=== PATIENT | male | born 1945 | race Caucasian/White ===

== ENCOUNTER 2016-12-16 17:51 | Observation (INO) | payer MEDICARE, BC ==
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
[2016-12-16] MEDS ORDERED: ALBUTEROL SULFATE/IPRATROPIUM 3 ML NEBU IH ONE ×2 (18:14→18:17)
[2016-12-16] MEDS ORDERED: METHYLPREDNISOLONE SOD SUCC/PF 40 MG/ML VIAL IV ONE (18:17)
[2016-12-16] MEDS ORDERED: AZITHROMYCIN 250 MG TABLET PO ONE (18:19)
[2016-12-16] MEDS: NORMAL SALINE 1,000 ML IV PRN (18:20)
--- NOTE | 2016-12-16 18:24 | ERNOTE ---
Dizziness ER Record Date of Service: 12/16/16 Presenting Symptoms: near-fainting Time Seen by Provider: 12/16/16 18:06 Source: patient, family Exam Limitations: no limitations Immunizations: IMMUNIZATION HX Immunizations Up to Date Yes History of Influenza Vaccine No Hx Pneumococcal Vaccination No Allergies/Adverse Reactions: Allergies Allergy/AdvReac Type Severity Reaction Status Date / Time No Known Allergies Allergy Verified 12/16/16 18:01 Home Medications: HOME MEDICATIONS NK [No Home Medication] 11/06/12 [Last Taken Unknown] - History of Present Illness Narrative: Coughing, wheezing, SOB for 3 weeks. Getting worse. Chills and sweats, but didn't take his temperature. Still smokes. Last night, took alkaseltzer for sleep, a double dose. Just before coming to the [facility] ER by ambulance today, he stood up and almost passed out. Timing and Duration: gone now Severity: max: mild Severity: currently: gone Associated Symptoms: Present: other Sense of movement: Present: falling Fainted/near fainted while:: Present: standing Decreased ability to stand/walk:: Present: weak Usually:: Present: walks w/o assistance Modifying Factors - (Improves): Reports: nothing Modifying Factors - (Worsens): Reports: standing position Prior Treament: Denies: recently seen, treated by physician, currently on antibiotics Review of Systems - Review of Systems Constitutional: Present: chills, diaphoresis, weakness, fatigue, malaise, decreased activity level EYE: Present: no symptoms reported ENT: Present: nose congestion, nasal drainage, sore throat Respiratory: Present: shortness of breath, cough, wheezing Cardiology: Present: no symptoms reported Gastrointestinal/Abdominal: Present: diarrhea - diarrhea for 2 days Genitourinary: Present: no symptoms reported Musculoskeletal: Present: no symptoms reported Skin: Present: no symptoms reported Neurological: Present: no symptoms reported Endocrine: Present: no symptoms reported Hematologic/Lymphatic: Present: no symptoms reported Psych: Present: no symptoms reported All Other Systems: All systems neg except as marked - Patient's Past Medical History Patient History - Medical: Kidney stone Patient History - Cardiac/Respiratory: COPD Patient History - Cancer: No Hx of Cancer Patient History - Surgical Procedures: No surgical history, Appendectomy Patient History - Other: None - Social History Living Situations: spouse Abuse History: No History of abuse Psych History: No pertinent hx Smoking Status: Current every day smoker Alcohol Use: none Drug Use: none - Immunizations Immunizations Up to Date: Yes Hx Pneumococcal Vaccination: No History of Influenza Vaccine: No Physical Exam - Physical Exam General Appearance: Present: wd/wn, mild distress, lethargic Eye Exam: Normal inspection: bilateral, PERRL: bilateral, EOMI: bilateral Ears, Nose, Throat: Present: normal ENT inspection, nasal congestion, pharyngeal erythema, dry mucous membranes Neck: Present: normal inspection Respiratory: Present: expiration (prolonged), rhonchi, wheezing Cardiovascular/Chest: Present: regular rate, rhythm, no murmur, tachycardia Gastrointestinal/Abdominal: Present: normal bowel sounds, nontender, nondistended, soft, no organomegaly Back Exam: Present: normal inspection Extremity Exam: Present: normal inspection, non-tender, normal range of motion, no edema Neurological Exam: Present: oriented Skin Exam: Present: normal color, warm/dry ED Progress - Results and Orders Patient's Lab Results:: I have reviewed the patient's lab results. - Vital Signs Patient's Vital Signs:: I have reviewed the patient's vital signs. Vital Signs: Vital Signs 12/16/16 12/16/16 12/16/16 17:54 18:00 18:17 Temperature 38.9 C H Pulse Rate 90 90 90 Respiratory 24 H 24 H Rate Blood Pressure 145/77 O2 Sat by Pulse 92 94 Oximetry - EKG EKG: supraventricular tachycardia, nonspecific ST T wave changes EKG read: Interp. by me - X-Ray X-Ray #1 X-Ray: chest Interpretation: Interp. by me - bilateral pneumonitis - Progress/Reassessment Chief Complaint: Dizziness Progress Note-Subjective: 12/16/16 19:58 Pneumonia severity score is 72, Class III, but after Duoneb, the patients wheezing improved minimally. Therefore the pneumonia is complicated by an acute exacerbation of COPD. I have therefor advised the patient to be admitted , at least overnight if not longer, and have discussed this with our Nurse Practitioner hospitalist, who agrees to accept him as an observation med surg admission. Departure Clinical Impression: Acute exacerbation of chronic bronchitis Pneumonia Qualifiers: Pneumonia type: due to unspecified organism Laterality: bilateral Lung location : lower lobe of lung Qualified Code(s): J18.9 - Pneumonia, unspecified organism - Departure Disposition: [facility] Condition: Fair
[2016-12-16] MEDS ORDERED: METHYLPREDNISOLONE SOD SUCC/PF 125 MG/2 ML VIAL ONE (18:29)
[2016-12-16] MEDS ORDERED: AZITHROMYCIN 250 MG TABLET ONE (18:29)
[2016-12-16 18:43] LABS: Hematocrit 49.4 % (42.0-52.0); Mean Cell Volume 93.6 fl (78-100); Mean Corpuscular Hemoglobin 32.2 pg (27-31); Mean Corpuscular Hgb Conc 34.4 g/dl (32-36); Mean Platelet Volume 9.6 fl (6.0-9.5); Neutrophil # 11.3 K/mm3 (1.3-6.0); Platelet Count 153 K/mm3 (150-450); Red Blood Count 5.28 M/mm3 (4.7-6.0); Red Cell Distribution Width 13.9 % (11.5-14.0); White Blood Count 13.8 K/mm3 (4.0-10.5)
[2016-12-16 19:03] LABS: Albumin * 3.8 gm/dl (3.4-5.0); BUN/Creatinine Ratio 13.2 (9.0-21.6); Bilirubin, Total 0.5 mg/dL (0.0-1.1); Ca. Corrected For Albumin 8.3 mg/dL (8.4-10.2); Calcium * 8.5 mg/dL (7.9-10.9); Carbon Dioxide 29.6 mmol/L (24-32.6); Potassium 3.6 mmol/L (3.4-4.6); T4 Free * 1.14 ng/dL (0.76-1.46); TSH * 0.533 uIU/mL (0.358-3.74); Total Protein 7.9 gm/dL (6.2-8.2); Troponin I 0.017 ng/ml (0.00-0.10)
--- OUTSIDE RECORDS SUMMARY | 2016-12-16 20:05 | XMS REPORT | Continuity of Care Document ---
:1945 Author Organization [facility] ([facility]) [place] [address] Phone [phone] Care Team Providers Name Role Phone Tung Holm Primary Care Provider [phone] Source Comments This disclosure is being made pursuant to the Care Everywhere program, applicable federal and state laws, and may not contain all informaitonavailable regarding this patient.[facility] ([facility]) Active Allergies and Adverse Reactions No Known [...]
[2016-12-16 20:07] LABS: Urine Appearance Clear; Urine Bilirubin Negative (NEGATIVE); Urine Color Yellow
[2016-12-16 20:08] LABS: Urine Bacteria None Seen; Urine Blood 250 /ul (NEGATIVE); Urine Ketone Negative (NEGATIVE); Urine Nitrite Negative (NEGATIVE); Urine Protein 30 mg/dL (NEGATIVE); Urine Specific Gravity 1.025 SP.GR. (1.005-1.030); Urine Urobilinogen Normal (NORMAL); Urine WBC 0-5 /hpf (0-5); Urine pH 5.5 pH (5.0-7.0)
[2016-12-16] MEDS ORDERED: ACETAMINOPHEN 325 MG TABLET PO PRN (20:21)
[2016-12-16] MEDS ORDERED: ALBUTEROL SULFATE 2.5 MG/3 ML VIAL.NEB IH PRN (20:24)
[2016-12-16] MEDS ORDERED: NICOTINE 21 MG PATC TD SCH (22:00)
--- NOTE | 2016-12-16 22:18 | HP ---
<Tyson Henley - Last Filed: 12/16/16 22:19> Chief Complaint - Chief Complaint Date of Service: 12/16/16 Time of Service: 22:00 Chief Complaint: Cough, wheezing, dizziness History of Present Illness: 71 years old male adm to the hospital from ER with reports of shortness of breath, wheezing, dizziness and non productive cough x 3 weeks. PMH significant for COPD and smoker. pt stated he has not seen a PCP in over 5 years and he continue to smoke and have not been using any inhalers or nebulizers at home. Despite his s/s at home he continue to smoke and stated he thought he would have gotten over s/s with the use of alkaseltzer. He denies headaches, chest pain, palpitation, fever or chills. He also had few episode of diarrhea that has since been resolved. Today he stood and felt dizzy like he was about to faint which prompt him to come to the ER. In ER he was given duoneb, IV steriod , supplemented oxygen with not much relief. On adm Temp 38.9 but pt didn't take his temp while at home, on adm WBC 38 and EKG SVT. Plan of care discussed with pt he verbalized understanding and agrees. - Patient's Past Medical History Patient History - Medical: Cataracts, Kidney stone Patient History - Cardiac/Respiratory: Bronchitis, COPD, Pneumonia, Other - smoker Patient History - Cancer: No Hx of Cancer Patient History - Surgical Procedures: No surgical history, Appendectomy, Cataracts, Urology - stone extraction Patient History - Other: None - Family History Father Family History - Medical: , Diabetes Type 2 Family History - Cancer: No pertinent family hx Mother Family History - Medical: Family History - Cardiac/Respiratory: COPD Family History - Cancer: No pertinent family hx - Social History Living Situations: spouse Abuse History: No History of abuse Psych History: No pertinent hx Smoking Status: Heavy tobacco smoker Have you smoked in the past 12 months: Yes Do you dip or chew tobacco: No Patient requests Smoking Cessation Consult: No Initiate information on Smoking Cessation: Yes Alcohol Use: none Drug Use: none - Immunizations Immunizations Up to Date: Yes Hx Pneumococcal Vaccination: No History of Influenza Vaccine: No Review Of Systems (GEN) - Review of Systems Generalized/Overall Review: Present: No Symptoms Reported EENTM: Present: No Symptoms Reported Respiratory: Present: Cough, Shortness of Breath, Wheezing Cardiac: Present: No Symptoms Reported Abdominal: Present: No Symptoms Reported Genitourinary: Present: No Symptoms Reported Musculoskeletal: Present: No Symptoms Reported Neurological: Present: No Symptoms Reported Skin: Present: No Symptoms Reported Endocrine: Present: No Symptoms Reported Immunizations: IMMUNIZATION HX Immunizations Up to Date Yes History of Influenza Vaccine No Hx Pneumococcal Vaccination No Allergies/Adverse Reactions: Allergies Allergy/AdvReac Type Severity Reaction Status Date / Time No Known Allergies Allergy Verified 12/16/16 18:01 Home Medications: HOME MEDICATIONS Albuterol Sulfate/Ipratropium [Duoneb 2.5-0.5MG/3ML Soln] 3 ml IH QID #120 vial 12/17/16 [Last Taken Unknown] Azithromycin [Zithromax] 250 mg PO DAILY #3 tablet 12/17/16 [Last Taken Unknown] Cefuroxime Axetil [Ceftin] 500 mg PO BID #20 tab 12/17/16 [Last Taken Unknown] Nebulizer [Compact Ultrasonic Nebulizer] 1 each MC QID #1 each 12/17/16 [Last Taken Unknown] predniSONE [Prednisone] 3 tab PO BID #60 tab 12/17/16 [Last Taken Unknown] Exam - Exam Vital Signs: Vital Signs - Last Taken Temp 37.5 C 12/16/16 20:22 Pulse 91 12/16/16 20:22 Resp 22 H 12/16/16 20:22 BP 151/58 12/16/16 20:22 Pulse Ox 95 12/16/16 20:22 Constitutional: Present: Alert, Oriented x3, Cooperative, No distress, Elderly, Looks Older than stated age ENT Exam: Present: moist mucous membranes Eye Exam: bilateral eye: PERRL Neck: Present: full range of motion Back Exam: Present: no CVA tenderness Respiratory: Present: chest non-tender, no accessory muscle use, decreased breath sounds, wheezing Cardiovascular/Chest: Present: normal peripheral pulses, regular rate, rhythm, no chest tenderness Peripheral Pulses: dorsalis-pedis (R): 2+, dorsalis-pedis (L): 2+ Abdomen: Present: Normal bowel sounds, soft, nontender, nondistended, no rebound tenderness /Rectal: Present: Exam deferred Extremity: Present: normal range of motion Skin Exam: Present: normal color, warm/dry, no cyanosis Appearance: Present: appropriate appearance Eye contact: Present: cooperative Thoughts: Present: normal thought pattern Diagnostic Studies: Microbiology 12/16/16 20:45 Sputum Culture - Preliminary Expectorate Sputum Laboratory Results WBC 13.8 K/mm3 (4.0-10.5) H 12/16/16 18:20 RBC 5.28 M/mm3 (4.7-6.0) 12/16/16 18:20 Hgb 17.0 gm/dL (13.5-18.0) 12/16/16 18:20 Hct 49.4 % (42.0-52.0) 12/16/16 18:20 MCV 93.6 fl (78-100) 12/16/16 18:20 MCH 32.2 pg (27-31) H 12/16/16 18:20 MCHC 34.4 g/dl (32-36) 12/16/16 18:20 RDW 13.9 % (11.5-14.0) 12/16/16 18:20 Plt Count 153 K/mm3 (150-450) 12/16/16 18:20 MPV 9.6 fl (6.0-9.5) H 12/16/16 18:20 Immature Gran % (Auto) 0.50 % (0.001-0.429) H 12/16/16 18:20 Immature Gran # (Auto) 0.07 K/mm3 (0.000-0.0310) H 12/16/16 18:20 Neutrophils % 82.0 % (42-75.0) H 12/16/16 18:20 Lymphocytes % 7.8 % (20-51) L 12/16/16 18:20 Monocytes % 9.3 % (0.0-9) H 12/16/16 18:20 Eosinophils % 0.0 % (0.0-3.0) 12/16/16 18:20 Basophils % 0.4 % (0.0-1.0) 12/16/16 18:20 Nucleated RBC % 0.0 k/mm3 (0-1) 12/16/16 18:20 Neutrophils # 11.3 K/mm3 (1.3-6.0) H 12/16/16 18:20 Lymphocytes # 1.1 k/mm3 (1.5-3.5) L 12/16/16 18:20 Monocytes # 1.3 k/mm3 (0.0-1.0) H 12/16/16 18:20 Eosinophils # 0.0 k/mm3 (0.0-0.7) 12/16/16 18:20 Absolute Basophils 0.1 k/mm3 (0.0-0.1) 12/16/16 18:20 Sodium 137 mmol/L (132-142) 12/16/16 18:20 Plasma Sodium 137 mmol/L (130-142) 12/16/16 18:20 Potassium 3.6 mmol/L (3.4-4.6) 12/16/16 18:20 Chloride 98 mmol/L (97-106) 12/16/16 18:20 Carbon Dioxide 29.6 mmol/L (24-32.6) 12/16/16 18:20 Anion Gap 13.0 mmol/L (6.8-13.8) 12/16/16 18:20 BUN 15 mg/dL (6-23) 12/16/16 18:20 Creatinine 1.14 mg/dL (0.4-1.4) 12/16/16 18:20 Est GFR (Non-Af Amer) 67 mL/min (60-130) 12/16/16 18:20 BUN/Creatinine Ratio 13.2 (9.0-21.6) 12/16/16 18:20 Random Glucose 123 mg/dL (70-110) H 12/16/16 18:20 Lactic Acid, Venous 1.4 mmol/L (0.4-2.0) 12/16/16 20:55 Calcium 8.5 mg/dL (7.9-10.9) 12/16/16 18:20 Calcium Adj for Albumin 8.3 mg/dL (8.4-10.2) L 12/16/16 18:20 Total Bilirubin 0.5 mg/dL (0.0-1.1) 12/16/16 18:20 AST 21 U/L (0-48) 12/16/16 18:20 ALT 21 U/L (19-67) 12/16/16 18:20 Alkaline Phosphatase 53 U/L (50-170) 12/16/16 18:20 Troponin I 0.017 ng/ml (0.00-0.10) 12/16/16 18:20 B-Natriuretic Peptide 172 pg/mL (5-350) 12/16/16 18:20 Total Protein 7.9 gm/dL (6.2-8.2) 12/16/16 18:20 Albumin 3.8 gm/dl (3.4-5.0) 12/16/16 18:20 Procalcitonin 0.06 ng/mL (0.05-0.50) 12/16/16 18:20 TSH 0.533 uIU/mL (0.358-3.74) 12/16/16 18:20 Free T4 1.14 ng/dL (0.76-1.46) 12/16/16 18:20 Urine Color Yellow 12/16/16 19:52 Urine Appearance Clear 12/16/16 19:52 Urine pH 5.5 pH (5.0-7.0) 12/16/16 19:52 Ur Specific Gilson 1.025 SP.GR. (1.005-1.030) 12/16/16 19:52 Urine Protein 30 mg/dL (NEGATIVE) H 12/16/16 19:52 Urine Glucose (UA) Negative mg/dL (NEGATIVE) 12/16/16 19:52 Urine Ketones Negative mg/dL (NEGATIVE) 12/16/16 19:52 Urine Blood 250 /ul (NEGATIVE) H 12/16/16 19:52 Urine Nitrate Negative (NEGATIVE) 12/16/16 19:52 Urine Bilirubin Negative mg/dl (NEGATIVE) 12/16/16 19:52 Prot Sulfosalicylic Acd 2+ mg/dL (0) H 12/16/16 19:52 Urine Urobilinogen Normal EU/dl (NORMAL) 12/16/16 19:52 Ur Leukocyte Esterase Negative /ul (NEGATIVE) 12/16/16 19:52 Urine RBC 5-10 /hpf (0-5) H 12/16/16 19:52 Urine WBC 0-5 /hpf (0-5) 12/16/16 19:52 Ur Epithelial Cells 0-5 /hpf (0-5) 12/16/16 19:52 Urine Bacteria None seen (NONE) 12/16/16 19:52 Urine Culture Comments No culture indicated 12/16/16 19:52 Assessment/Plan - Narrative Narrative: Acute on chronic COPD exacerbation- Heavy smoker and not non-compliance with treatment regimen. Continue with duoneb, inhale and IV steriod treatment Supplemented oxygen spo2 >90% Encourage use of I/S/ Cornet Nicotine patch Blood culture and sputum culture pending Substance abuse smoking cessation education Nicotine patch SVT - seen on EKG vs nebulizer treatment Continue while on Tele Code status: DNR VTE ppx: Lovenox GI PPX: protonix Anticipate discharge home 0-1 day and seek out a PCP Time 35 minutes and previous records reviewed. - Assessment/Plan (1) COPD (chronic obstructive pulmonary disease) Problem: Acute QualifierTitle: COPD type: COPD with acute exacerbation Qualified Code(s) : J44.1 - Chronic obstructive pulmonary disease with (acute) exacerbation (2) Smoker Problem: Chronic <Tung León - Last Filed: 12/17/16 17:40> Immunizations: IMMUNIZATION HX Immunizations Up to Date Yes History of Influenza Vaccine No Hx Pneumococcal Vaccination No Exam - Exam Vital Signs: Vital Signs - Last Taken Temp 35.6 C L 12/17/16 09:00 Pulse 70 12/17/16 15:07 Resp 20 12/17/16 15:07 BP 111/51 12/17/16 09:00 Pulse Ox 91 12/17/16 14:57 Diagnostic Studies: Abnormal Lab Results 12/17/16 12/17/16 Range/Units 05:47 05:47 WBC 12.2 H (4.0-10.5) K/mm3 MCH 31.5 H (27-31) pg RDW 14.1 H (11.5-14.0) % Plt Count 148 L (150-450) K/mm3 MPV 10.0 H (6.0-9.5) fl Neutrophils % (Manual) 77 H (42-75) % Band Neuts % (Manual) 11 H (0-2.0) % Lymphocytes % (Manual) 8 L (20-51) % Neutrophils # (Manual) 9.4 H (1.3-6.0) K/mm3 Lymphocytes # (Manual) 1.0 L (1.5-3.5) k/mm3 Platelet Estimate Decreased L (NORMAL) Random Glucose 157 H (70-110) mg/dL Microbiology 12/16/16 20:45 Sputum Culture - Preliminary Expectorate Sputum Laboratory Results WBC 12.2 K/mm3 (4.0-10.5) H 12/17/16 05:47 RBC 4.85 M/mm3 (4.7-6.0) 12/17/16 05:47 Hgb 15.3 gm/dL (13.5-18.0) 12/17/16 05:47 Hct 45.7 % (42.0-52.0) 12/17/16 05:47 MCV 94.2 fl (78-100) 12/17/16 05:47 MCH 31.5 pg (27-31) H 12/17/16 05:47 MCHC 33.5 g/dl (32-36) 12/17/16 05:47 RDW 14.1 % (11.5-14.0) H 12/17/16 05:47 Plt Count 148 K/mm3 (150-450) L 12/17/16 05:47 MPV 10.0 fl (6.0-9.5) H 12/17/16 05:47 Immature Gran % (Auto) 0.50 % (0.001-0.429) H 12/16/16 18:20 Immature Gran # (Auto) 0.07 K/mm3 (0.000-0.0310) H 12/16/16 18:20 Neutrophils % 82.0 % (42-75.0) H 12/16/16 18:20 Neutrophils % (Manual) 77 % (42-75) H 12/17/16 05:47 Band Neuts % (Manual) 11 % (0-2.0) H 12/17/16 05:47 Lymphocytes % 7.8 % (20-51) L 12/16/16 18:20 Lymphocytes % (Manual) 8 % (20-51) L 12/17/16 05:47 Monocytes % 9.3 % (0.0-9) H 12/16/16 18:20 Monocytes % (Manual) 3 % (0-9) 12/17/16 05:47 Eosinophils % 0.0 % (0.0-3.0) 12/16/16 18:20 Eosinophils % (Manual) 1 % (0-3) 12/17/16 05:47 Basophils % 0.4 % (0.0-1.0) 12/16/16 18:20 Nucleated RBC % 0.0 k/mm3 (0-1) 12/16/16 18:20 Neutrophils # 11.3 K/mm3 (1.3-6.0) H 12/16/16 18:20 Neutrophils # (Manual) 9.4 K/mm3 (1.3-6.0) H 12/17/16 05:47 Lymphocytes # 1.1 k/mm3 (1.5-3.5) L 12/16/16 18:20 Lymphocytes # (Manual) 1.0 k/mm3 (1.5-3.5) L 12/17/16 05:47 Monocytes # 1.3 k/mm3 (0.0-1.0) H 12/16/16 18:20 Monocytes # (Manual) 0.4 k/mm3 (0.0-1.0) 12/17/16 05:47 Eosinophils # 0.0 k/mm3 (0.0-0.7) 12/16/16 18:20 Eosinophils # (Manual) 0.1 k/mm3 (0.0-0.7) 12/17/16 05:47 Absolute Basophils 0.1 k/mm3 (0.0-0.1) 12/16/16 18:20 Platelet Estimate Decreased (NORMAL) L 12/17/16 05:47 Giant Platelets Trace 12/17/16 05:47 RBC Morphology Normal (NORMAL) 12/17/16 05:47 Sodium 140 mmol/L (132-142) 12/17/16 05:47 Plasma Sodium 141 mmol/L (130-142) 12/17/16 05:47 Potassium 3.9 mmol/L (3.4-4.6) 12/17/16 05:47 Chloride 104 mmol/L (97-106) 12/17/16 05:47 Carbon Dioxide 26.6 mmol/L (24-32.6) 12/17/16 05:47 Anion Gap 13.3 mmol/L (6.8-13.8) 12/17/16 05:47 BUN 17 mg/dL (6-23) 12/17/16 05:47 Creatinine 0.99 mg/dL (0.4-1.4) 12/17/16 05:47 Est GFR (Non-Af Amer) 79 mL/min (60-130) 12/17/16 05:47 BUN/Creatinine Ratio 17.2 (9.0-21.6) 12/17/16 05:47 Random Glucose 157 mg/dL (70-110) H 12/17/16 05:47 Lactic Acid, Venous 1.4 mmol/L (0.4-2.0) 12/16/16 20:55 Calcium 8.7 mg/dL (7.9-10.9) 12/17/16 05:47 Calcium Adj for Albumin 8.3 mg/dL (8.4-10.2) L 12/16/16 18:20 Total Bilirubin 0.5 mg/dL (0.0-1.1) 12/16/16 18:20 AST 21 U/L (0-48) 12/16/16 18:20 ALT 21 U/L (19-67) 12/16/16 18:20 Alkaline Phosphatase 53 U/L (50-170) 12/16/16 18:20 Troponin I 0.017 ng/ml (0.00-0.10) 12/16/16 18:20 B-Natriuretic Peptide 172 pg/mL (5-350) 12/16/16 18:20 Total Protein 7.9 gm/dL (6.2-8.2) 12/16/16 18:20 Albumin 3.8 gm/dl (3.4-5.0) 12/16/16 18:20 Procalcitonin 0.06 ng/mL (0.05-0.50) 12/16/16 18:20 TSH 0.533 uIU/mL (0.358-3.74) 12/16/16 18:20 Free T4 1.14 ng/dL (0.76-1.46) 12/16/16 18:20 Urine Color Yellow 12/16/16 19:52 Urine Appearance Clear 12/16/16 19:52 Urine pH 5.5 pH (5.0-7.0) 12/16/16 19:52 Ur Specific Gilson 1.025 SP.GR. (1.005-1.030) 12/16/16 19:52 Urine Protein 30 mg/dL (NEGATIVE) H 12/16/16 19:52 Urine Glucose (UA) Negative mg/dL (NEGATIVE) 12/16/16 19:52 Urine Ketones Negative mg/dL (NEGATIVE) 12/16/16 19:52 Urine Blood 250 /ul (NEGATIVE) H 12/16/16 19:52 Urine Nitrate Negative (NEGATIVE) 12/16/16 19:52 Urine Bilirubin Negative mg/dl (NEGATIVE) 12/16/16 19:52 Prot Sulfosalicylic Acd 2+ mg/dL (0) H 12/16/16 19:52 Urine Urobilinogen Normal EU/dl (NORMAL) 12/16/16 19:52 Ur Leukocyte Esterase Negative /ul (NEGATIVE) 12/16/16 19:52 Urine RBC 5-10 /hpf (0-5) H 12/16/16 19:52 Urine WBC 0-5 /hpf (0-5) 12/16/16 19:52 Ur Epithelial Cells 0-5 /hpf (0-5) 12/16/16 19:52 Urine Bacteria None seen (NONE) 12/16/16 19:52 Urine Culture Comments No culture indicated 12/16/16 19:52 Assessment/Plan - Narrative Narrative: Pneumonia severity score 72, but the patient also has acute exacerbation of COPD and even after starting treatment, looks very fatigued. I am concerned he may deteriorate, so we will admit to observation. I directly supervised our nurse practitioner in all of her care for this patient. - Assessment/Plan (1) Acute exacerbation of chronic bronchitis Problem: Acute (2) Pneumonia Problem: Acute Qualifiers: Pneumonia type: due to unspecified organism Laterality: bilateral Lung location: lower lobe of lung Qualified Code(s): J18.9 - Pneumonia, unspecified organism (3) Smoker Problem: Chronic
[2016-12-16] MEDS: ALBUTEROL SULFATE/IPRATROPIUM 3 ML NEBU IH SCH (22:23)
[2016-12-17] MEDS: BUDESONIDE 0.5 MG/2 ML VIAL.NEB IH SCH ×2 (00:43→06:03)
[2016-12-17] MEDS: METHYLPREDNISOLONE SOD SUCC 60 MG in WATER FOR INJ.,BACTERIOSTATIC 0 ML IV SCH ×2 (02:04→09:30)
[2016-12-17] MEDS: ALBUTEROL SULFATE/IPRATROPIUM 3 ML NEBU IH SCH ×4 (06:02→14:57)
[2016-12-17 06:03] LABS: Hematocrit 45.7 % (42.0-52.0); Hemoglobin 15.3 gm/dL (13.5-18.0); Mean Cell Volume 94.2 fl (78-100); Mean Corpuscular Hemoglobin 31.5 pg (27-31); Mean Corpuscular Hgb Conc 33.5 g/dl (32-36); Platelet Count 148 K/mm3 (150-450); Red Blood Count 4.85 M/mm3 (4.7-6.0); Red Cell Distribution Width 14.1 % (11.5-14.0); White Blood Count 12.2 K/mm3 (4.0-10.5)
[2016-12-17 06:04] LABS: Total Cells Counted 100
[2016-12-17 06:16] LABS: Anion Gap 13.3 mmol/L (6.8-13.8); BUN/Creatinine Ratio 17.2 (9.0-21.6); Calcium * 8.7 mg/dL (7.9-10.9); Carbon Dioxide 26.6 mmol/L (24-32.6); Estimated Creat Clear 63.1; Potassium 3.9 mmol/L (3.4-4.6)
[2016-12-17 06:22] LABS: Band 11 % (0-2.0); Eosinophil 1 % (0-3); Giant Platelets Trace; Lymphocyte 8 % (20-51); Monocyte 3 % (0-9); Neutrophil 77 % (42-75); Neutrophil # 9.4 K/mm3 (1.3-6.0); Platelet Estimate Decreased (NORMAL)
[2016-12-17 06:23] LABS: RBC Morphology Normal (NORMAL)
[2016-12-17 06:25] VITALS: BP 111/51
[2016-12-17] MEDS ORDERED: PANTOPRAZOLE SODIUM 40 MG TABLET.EC PO SCH (07:00)
[2016-12-17] MEDS: NORMAL SALINE 1,000 ML IV PRN (07:57)
[2016-12-17] MEDS ORDERED: ENOXAPARIN SODIUM 40 MG/0.4 ML SYRG SC SCH (09:00)
[2016-12-17] MEDS ORDERED: AZITHROMYCIN 250 MG TABLET PO SCH (09:00)
--- NOTE | 2016-12-17 09:38 | DS ---
(1) Acute exacerbation of chronic bronchitis Problem: Acute (2) Pneumonia Problem: Acute Qualifiers: Pneumonia type: due to unspecified organism Laterality: bilateral Lung location: lower lobe of lung Qualified Code(s): J18.9 - Pneumonia, unspecified organism (3) Smoker Problem: Chronic Description of Stay: Treated with IV and oral antibiotics, IV steroids and nebulized bronchodilators. Substantially better today, so will discharge home on meds. Procedures Performed: none Discharge Disposition: Home self care Disposition: Home self-care Condition: Fair Discharge Activity: Activity as tolerated Discharge Diet: General/regular food Problem Oriented Discharge Instructions to Patient/Family: Smoking Cessation, Tips for Success, [id number], Community-Acquired Pneumonia, Adult, Easy-to- Read, Chronic Obstructive Pulmonary Disease Exacerbation, [id number] Additional Patient Instructions (free text): CBC BMP [address] Holm 1 week. Prescriptions (Any new or edited meds): Albuterol Sulfate/Ipratropium [Duoneb 2.5-0.5MG/3ML Soln] 3 ml IH QID #120 vial Azithromycin [Zithromax] 250 mg PO DAILY #3 tablet Cefuroxime Axetil [Ceftin] 500 mg PO BID #20 tab Nebulizer [Compact Ultrasonic Nebulizer] 1 each MC QID #1 each predniSONE [Prednisone] 3 tab PO BID #60 tab Complete Home Medications List: Complete Home Medication List: Albuterol Sulfate/Ipratropium [Duoneb 2.5-0.5MG/3ML Soln] 3 ml IH QID #120 vial 12/17/16 Azithromycin [Zithromax] 250 mg PO DAILY #3 tablet 12/17/16 Cefuroxime Axetil [Ceftin] 500 mg PO BID #20 tab 12/17/16 Nebulizer [Compact Ultrasonic Nebulizer] 1 each MC QID #1 each 12/17/16 predniSONE [Prednisone] 3 tab PO BID #60 tab 12/17/16
== END 2016-12-17 16:04 | disposition home or self-care (01) ==
LOC: ER 17:51 → MS 20:00
PROVIDERS: ADMIT Allergy & Immunology; ATTEND Allergy & Immunology
DX: J44.0 Chronic obstructive pulmonary disease with (acute) lower respiratory infection (principal); J20.9 Acute bronchitis, unspecified; J18.9 Pneumonia, unspecified organism; I47.1 Supraventricular tachycardia; Z72.0 Tobacco use
CPT/HCPCS: 36415; 71010; 80048; 80053; 81001; 83605; 83880; 84145; 84439; 84443; 84484; 85007; 85025; 87040; 87070; 87449; 93005; 94640; 96365; 96366; 96372; 96375; 96376; 99284; G0378